=== PATIENT | male | born 1965 | race Hispanic/Latino ===

== ENCOUNTER → 2018-10-25 | Outpatient (CLI) | payer OTHER ==
--- NOTE | 2018-10-25 13:30 | Diagnostic Imaging Report ---
EXAM: CT Abdomen and Pelvis WITHOUT contrast INDICATION: Calculi COMPARISON: None. TECHNIQUE: Abdomen and Pelvis was scanned utilizing a multidetector helical scanner without the use of IV contrast. Coronal and sagittal reformations were obtained. IV CONTRAST: None COMPLICATIONS: None RADIATION DOSE: Total DLP: 749 mGy*cm Estimated effective dose: (DLP x 0.015 x size factor) mSv CTDIvol has been reviewed. It is below the limits set by the Radiation Protocol Committee (RPC). Appropriate CT dose reduction techniques were utilized. FINDINGS: Abdomen: Lung Bases: No acute findings. Solid Organs: There are a few hypodensities in the liver which are incompletely characterized due to size and nonenhanced exam. Otherwise, liver, adrenals, spleen, and pancreas are unremarkable. 38 mm statistical cyst mid left kidney. Multiple bilateral nonobstructing renal calculi. Largest on the right inferior 3 mm coronal image 66. Largest on the left superior 12 mm coronal image 81. No hydronephrosis or ureteral calculi. Upper GI Tract: No small bowel obstructive changes. Vascularity: No aortic aneurysm. Lymph Nodes: No suspicious adenopathy. Other: None. Pelvis: Bladder: Unremarkable. Other: Prostate 59 mm. Colon: No acute findings. Bones: Advanced degenerative changes spine. IMPRESSION: 1. Bilateral nonobstructing renal calculi as above. No hydronephrosis or ureteral calculi. 2. Hepatic hypodensities incompletely evaluated on current study. Liver mass MRI could be obtained for further evaluation. 3. Enlarged prostate. Clinical/laboratory correlation recommended. Signed by: Dr. Dillon Valdez MD on 10/25/2018 1:27 PM
== END ==
LOC: CT 12:43
PROVIDERS: ATTEND Urology
DX: N20.0 Calculus of kidney (principal)
CPT/HCPCS: 74176

== ENCOUNTER → 2018-11-29 | Day surgery (SDC) | payer OTHER ==
[~2018-11-29] MED LIST: AMLODIPINE BESYL5 MG PO; ASPIRIN81 MG; ATORVASTATIN CA10 MG PO; CEFTRIAXONE SOD 1 GM/NS 50 ML 50 ML IV ONE; DEXAMETHASONE SOD PHOS INJ 4 MG/ML VIAL ONE; FENTANYL CITRATE/PF 100MCG/2 ML INJ ONE; LIDOCAINE HCL 2% LOCAL INJ 5 ML SDV VIAL INJ ONE; MIDAZOLAM HCL 2 MG/2 ML VIAL ONE; ONDANSETRON HCL INJ 2 MG/ML VIAL ONE; PROPOFOL IV EMULSION 10 MG/ML 20 ML VIAL ONE; SEVOFLURANE INHAL SOLN 250 ML PEN BTL ONE
--- OUTSIDE RECORDS SUMMARY | 2018-11-29 06:08 | XMS REPORT ---
Author Author [facility] Address Unknown Phone Unavailable Care Team Providers Care Conductor [employer] Name Role Phone VINOD PIERRE Unavailable Unavailable Problems This patient has no known problems. Allergies, Adverse Reactions, Alerts This patient has no known allergies or adverse reactions. Medications This patient has no known medications. Results Test Description Test Time Test Comments Text Results Atomic Results Result Comments CT ABDOMEN/PELVIS WO 2018-10-25 13:23:00 [place] [address] Patient Name: MARNIE GARCIA MR #: [id number] : 1965 Age/Sex: 53/M Req #: [id number] Adm Physician: Ordered by: VINOD PIERRE MD Report #: [id number] Location: CT Room/Bed: Procedure: [id number] CT/CT ABDOMEN/PELVIS WO Exam Date: 10/25/18 Exam Time: 1300 REPORT STATUS: Signed EXAM: CT Abdomen and Pelvis WITHOUT contrast IN DICATION: Calculi COMPARISON: None. TECHNIQUE: Abdomen and Pelvis was scanned utilizing a multidetector helical scanner without the use of IV contrast. Coronal and sagittal reformations were obtained. IV CONTRAST: None COMPLICATIONS: None RADIATION DOSE: Total DLP: 749 mGy*cm Estimated effective dose: (DLP x 0.015 x size factor) mSv CTDIvol has been reviewed. It is below the limits set by the Radiation Protocol Committee (RPC). Appropriate CT dose reduction techniques were utilized. FINDINGS: Abdomen: Lung Bases: No acute findings. Solid Organs: There are a few hypodensities in the liver which are incompletely characterized due to size and nonenhanced exam. Otherwise, liver, adrenals, spleen, and pancreas are unremarkable. 38 mm statistical cyst mid left kidney. Multiple bilateral nonobstructing renal calculi. Largest on the right inferior 3 mm coronal image 66. Largest on the left superior 12 mm coronal image 81. No hydronephrosis or ureteral calculi. Upper GI Tract: No small bowel obstructive changes. Vascularity: No aortic aneurysm. Lymph Nodes: No suspicious adenopathy. Other: None. Pelvis: Bladder: Unremarkable. Other: Prostate 59 mm. Colon: No acute findings. Bones: Advanced degenerative changes spine. IMPRESSION: 1. Bilateral nonobstructing renal calculi as above. No hydronephrosis or ureteral calculi. 2. Hepatic hypodensities incompletely evaluated on current study. Liver mass MRI could be obtained for further evaluation. 3. Enlarged prostate. Clinical/laboratory correlation recommended. Signed by: Dr. Dillon Calvillo MD on 10/25/2018 1:27 PM Dictated By: DILLON CALVILLO MD 132 Transcribed By: GERTRUDIS on 10/25/181326 COPY TO: VINOD PIERRE MD
--- NOTE | 2018-11-29 07:27 | Diagnostic Imaging Report ---
EXAM: Abdomen 2 Views INDICATION: ^DR ORDERS IN RADIOLOGY DEPT ^[id number] ^[id number] ^DAYSURGERY ROOM 1 STAT COMPARISON: CT dated 10/25/2018 FINDINGS: Nonobstructive bowel gas pattern. No signs of pneumoperitoneum. [2 cm calcification overlying right renal shadow corresponds to calcification seen anterior to the right kidney on prior CT, which is probably vascular. 1 cm calcification overlying left renal midpole. Degenerative changes of spine. Pelvic phlebolith. There are also calcifications overlying left abdomen, likely soft tissue or vascular calcifications. IMPRESSION: 1. 1 cm left renal midpole calculus. 2. 1.2 cm calcification overlying right renal inferior pole shadow, corresponds to calcification anterior to the right kidney, seen on prior CT, which is probably vascular. The additional tiny bilateral renal stones, seen on prior CT, are beyond the resolution of this KUB. 3. Nonobstructive bowel gas pattern. Signed by: Dr. Shawn Eason MD on 11/29/2018 7:23 AM
--- NOTE | 2018-11-29 08:55 | Operative Report ---
DATE OF PROCEDURE: November 29, 2018 PREOPERATIVE DIAGNOSIS: Left kidney stone. POSTOPERATIVE DIAGNOSIS: Left kidney stone. PROCEDURE: Staged shock-wave lithotripsy. ANESTHESIA: General. ESTIMATED BLOOD LOSS: Minimal. INDICATIONS: Mr. Gaxiola is a 53-year-old male with symptomatic renal calculi and gross hematuria, who just passed a right kidney stone, now presenting for definitive management of the left kidney stones. He voiced an understanding of the options, the alternatives, and the risks and benefits, and he elected to proceed. PROCEDURE IN DETAIL: Informed consent was obtained. The patient was taken to the operative suite and placed supine on the table and underwent general anesthesia by the anesthesia service. The stone was localized in the X, Y and Z planes. Lithotripsy treatment was performed per the treatment report. The patient tolerated the procedure well and was transported to the recovery room in excellent condition. SUPERVISION OF FLUOROSCOPY: I was present for the entire procedure and supervised the use of fluoroscopy as no radiologist was present. The dosage that was performed is per the treatment report. Job#: [id number]
[2018-11-29 09:20] VITALS: BP 128/71
== END | disposition home or self-care (01) ==
LOC: OR 06:04
PROVIDERS: ATTEND Urology
DX: N20.0 Calculus of kidney (principal); I45.10 Unspecified right bundle-branch block; Z01.810 Encounter for preprocedural cardiovascular examination; Z79.82 Long term (current) use of aspirin
CPT/HCPCS: 50590; 74018; 93005; J0696; J1100; J2001; J2250; J2405; J2704

== ENCOUNTER → 2024-08-22 | Day surgery (SDC) | payer OTHER ==
[~2024-08-22] MED LIST changes: +BENICAR20 MG PO; -CEFTRIAXONE SOD 1 GM/NS 50 ML 50 ML IV ONE; +DEXAMETHASONE SOD PHOS INJ 4 MG/ML SDV ONE; -DEXAMETHASONE SOD PHOS INJ 4 MG/ML VIAL ONE; +EPHEDRINE SULFATE INJ 50 MG/ML VIAL ONE; +FLOMAX0.4 MG PO; +KETOROLAC TROMETHAMINE 30 MG/ML VIAL ONE; -ONDANSETRON HCL INJ 2 MG/ML VIAL ONE; +ONDANSETRON HCL INJ 2MG/ML 2ML 2 MG/ML VIAL ONE; +VIT D PO
[2024-08-22] MEDS: LACTATED RINGER'S 1,000 ML ONE (10:00)
[2024-08-22] MEDS: CEFTRIAXONE 1 GM VIAL ONE (10:00)
[2024-08-22 11:25] VITALS: BP 110/84; PULSE 76; RESP 16; O2SAT 100
== END | disposition home or self-care (01) ==
LOC: OR 08:24
PROVIDERS: ATTEND Urology
DX: N20.1 Calculus of ureter (principal); N40.0 Benign prostatic hyperplasia without lower urinary tract symptoms; N32.89 Other specified disorders of bladder; I10 Essential (primary) hypertension; E78.5 Hyperlipidemia, unspecified; Z01.810 Encounter for preprocedural cardiovascular examination; Z79.82 Long term (current) use of aspirin; Z79.899 Other long term (current) drug therapy
CPT/HCPCS: 52005; 74420; 93005; C1758; C1769; J0696; J1100; J1885; J2003; J2250; J2405; J2704; J3010; J7121